=== PATIENT | female | born 1970 | race Two or more races ===

== ENCOUNTER 2019-12-12 01:07 | Inpatient (IN) | payer MEDICAID ==
[2019-12-12] VITALS (15 sets, daily range): BP systolic 105–128; BP diastolic 53–78
[~2019-12-12] VITALS: Ht 162.6 cm; Wt 100.0 kg
[2019-12-12] MEDS ORDERED: IV NS 1000 ML 1,000 ML IV ONE (01:30)
[2019-12-12 01:40] LABS: CREATININE 0.8 mg/dL (0.6-1.3); POTASSIUM 3.8 mmol/L (3.5-5.1)
--- NOTE | 2019-12-12 01:44 | NUR ---
Patient in bed, respirations even and unlabored on 4lpm via n/c well tolerated. No acute distress noted. Will continue to monitor.
[2019-12-12 01:45] LABS: BASOPHILS % (AUTO) 0.6 % (0.0-2.0); EOSINOPHILS % (AUTO) 0.1 % (0.0-7.0); HEMATOCRIT 39.5 % (31.2-41.9); HEMOGLOBIN 13.3 g/dL (10.9-14.3); LYMPHOCYTES # (AUTO) 1.4 K/uL (20.0-40.0); LYMPHOCYTES % (AUTO) 19.2 % (20.5-51.5); MAGNESIUM 1.6 mg/dL (1.8-2.4); MEAN CORPUSCULAR HEMOGLOBIN 28.5 uug (24.7-32.8); MEAN CORPUSCULAR HGB CONC 34 g/dL (32.3-35.6); MEAN CORPUSCULAR VOLUME 84.5 fL (75.5-95.3); MONOCYTES # (AUTO) 0.2 K/uL (2.0-10.0); MONOCYTES % (AUTO) 3.4 % (0.0-11.0); NEUTROPHILS # (AUTO) 5.4 K/uL (1.8-8.9); NEUTROPHILS % (AUTO) 76.7 % (38.5-71.5); PHOSPHOROUS 3.1 mg/dL (2.5-4.9); PLATELET COUNT (AUTO) 205 K/uL (179-408); RED BLOOD CELL COUNT(AUTO) 4.67 MIL/uL (3.63-4.92); WHITE BLOOD COUNT (AUTO) 7.1 K/uL (3.8-11.8)
[2019-12-12 01:53] LABS: BILIRUBIN,TOTAL 0.5 mg/dL (0.2-1.0); TOTAL PROTEIN, SERUM 7.1 g/dL (6.4-8.2)
[2019-12-12 01:57] LABS: THYROID STIMULATING HORMONE 4.442 mIU/mL (0.358-3.740)
[2019-12-12 02:00] LABS: ABG BASE EXCESS -0.5 mmol/L; ABG HCO3 21.9 mmol/L; ABG PH 7.482 (7.350-7.450); ABG PO2 81.7 mmHg (75.0-100.0); ABG SITE LEFT RADIAL; ABG TOTAL HEMOGLOBIN 13.3 G/dL (12.0-16.0); COHb 1.2 % (0.5-1.5); MetHb 0.3 % (0.0-1.5); O2Hb 95.9 % (94.0-97.0); VENT MODE Nasal Cannula
--- NOTE | 2019-12-12 02:11 | NUR ---
RT at bedside for ABG. Well tolerated by patient.
--- NOTE | 2019-12-12 02:42 | NUR ---
Report to Digna JARRETT
[2019-12-12] MEDS ORDERED: MAGNESIUM SULFATE/D5W 100 ML ONE (02:47)
--- NOTE | 2019-12-12 03:15 | NUR ---
Assumed care of patient from Digna JARRETT. Patient in bed, no acute distress. provided with blankets at this time.
[2019-12-12] MEDS: MAGNESIUM SULFATE/D5W 100 ML IV SCH ×4 (03:16→15:38)
[2019-12-12] MEDS ORDERED: ENOXAPARIN SODIUM 80 MG/0.8 ML DISP.SYRIN SQ ONE ×2 (03:45→03:46)
[2019-12-12] MEDS ORDERED: levoFLOXacin 750 MG/D5W 150 ML PIGGYBACK IV ONE (03:45)
[2019-12-12] MEDS ORDERED: CEFTRIAXONE 2 G in IV DEXTROSE 5% 100 ML IV ONE (03:45)
[2019-12-12] MEDS ORDERED: CEFTRIAXONE /D5W 50ML IVPB **ER PYXIS IV ONE (03:48)
--- NOTE | 2019-12-12 04:05 | NUR ---
Patient in bed, stable. Respirations even and unlabored , patient on 6L O2 via N/c per ER MD order. RR @ 21. SaO2 @ 95 % with good wave form.
--- NOTE | 2019-12-12 04:14 | NUR ---
[facility] called back, 2nd call placed to Aleida LINARES
[2019-12-12] MEDS ORDERED: ONDANSETRON 4 MG/2 ML VIAL IV PRN (05:00)
[2019-12-12] MEDS ORDERED: AZITHROMYCIN IV 500 MG in IV DEXTROSE 5% 250 ML IV SCH (05:00)
--- NOTE | 2019-12-12 05:02 | NUR ---
Patient in bed, isolation precautions ongoing. Respirations even and unlabored. SaO2 @ 95% on 6lpm via N/c. HR 70. RR20
[2019-12-12] MEDS ORDERED: levoFLOXacin 750MG/D5W 150 ML IV ONE (06:00)
--- NOTE | 2019-12-12 06:13 | NUR ---
Report given to Carito JARRETT on COVID Unit
--- NOTE | 2019-12-12 06:19 | NUR ---
Levaquin infusing. Will continue to infuse until complete dose. EMAR placed end time preemptively.
--- NOTE | 2019-12-12 07:04 | NUR ---
Report given to Sarah JARRETT
--- NOTE | 2019-12-12 07:10 | NUR ---
Received report from Bobo JARRETT
--- NOTE | 2019-12-12 07:30 | NUR ---
pt in bed, a a/ox4. on 6L O2 via NC. able to speak in complete sentences. able to make needs known No s/s of cardiovascular distress. Will continue to monitor
--- NOTE | 2019-12-12 08:30 | NUR ---
report given to KOLBY Nash
--- NOTE | 2019-12-12 08:50 | NUR ---
Pt. admitted to CCU 1 , under care of Isaiah Zambrano, CUSTOMER RETENTION REPRESENTATIVE Belongs List completed. All belongings with pt AA/Ox4. Able to speak in complete sentences Afibrile. Temp 98.8 oral On 6 L O2. O2 stat 96%
[2019-12-12] MEDS ORDERED: HYDROXYCHLOROQUINE SULFATE 200 MG TABLET PO SCH (09:00)
[2019-12-12] MEDS ORDERED: ACETAMINOPHEN 325 MG TABLET PO ONE (10:47)
[2019-12-12] MEDS: methylPREDNISolone SOD SUCC 125 MG/2 ML VIAL IV SCH ×2 (11:01→21:50)
[2019-12-12] MEDS: ENOXAPARIN SODIUM 40 MG/0.4 ML DISP.SYRIN SQ SCH (11:01)
[2019-12-12] MEDS: HYDROCODONE BIT/HOMATROPINE 5 ML UDC PO PRN ×2 (11:02→18:21)
[2019-12-12] MEDS ORDERED: TOCILIZUMAB 400 MG in IV NORMAL SALINE 80 ML IV ONE (11:15)
[2019-12-12] MEDS ORDERED: DEXTROSE 50% 50 ML DISP.SYRIN IV PRN (11:30)
[2019-12-12] MEDS: BLOOD SUGAR DIAGNOSTIC 1 EACH STRIP VI SCH ×3 (11:30→21:51)
[2019-12-12] MEDS: INSULIN REGULAR, HUMAN 300 UNIT/3 ML VIAL SQ PRN ×2 (13:28→17:34)
[2019-12-12] MEDS ORDERED: INVESTIGATIONAL IV MED 1 EA in IV NORMAL SALINE 210 ML IV ONE (15:30)
[2019-12-12] MEDS: INSULIN REGULAR, HUMAN 300 UNITS/3 ML VIAL SQ PRN (21:53)
[2019-12-12] MEDS: IV NORMAL SALINE 250 ML IV PRN (21:59)
--- NOTE | 2019-12-12 22:15 | NUR ---
Dtr: Tatiana called here / update.
[2019-12-13] VITALS (23 sets, daily range): BP systolic 96–121; BP diastolic 48–90
--- NOTE | 2019-12-13 00:45 | NUR ---
Inserted Corbett by female RN; patient incontinent.
[2019-12-13 04:53] LABS: BASOPHILS % (AUTO) 0.1 % (0.0-2.0); HEMATOCRIT 37.9 % (31.2-41.9); HEMOGLOBIN 12.8 g/dL (10.9-14.3); LYMPHOCYTES # (AUTO) 0.7 K/uL (20.0-40.0); LYMPHOCYTES % (AUTO) 11.9 % (20.5-51.5); MEAN CORPUSCULAR HEMOGLOBIN 28.7 uug (24.7-32.8); MEAN CORPUSCULAR HGB CONC 34 g/dL (32.3-35.6); MEAN CORPUSCULAR VOLUME 84.9 fL (75.5-95.3); MONOCYTES # (AUTO) 0.2 K/uL (2.0-10.0); MONOCYTES % (AUTO) 3.2 % (0.0-11.0); NEUTROPHILS # (AUTO) 5.3 K/uL (1.8-8.9); NEUTROPHILS % (AUTO) 84.8 % (38.5-71.5); PLATELET COUNT (AUTO) 256 K/uL (179-408); RED BLOOD CELL COUNT(AUTO) 4.46 MIL/uL (3.63-4.92); WHITE BLOOD COUNT (AUTO) 6.2 K/uL (3.8-11.8)
[2019-12-13 05:02] LABS: PHOSPHOROUS 2.9 mg/dL (2.5-4.9)
[2019-12-13 05:54] LABS: BILIRUBIN,DIRECT 0.1 mg/dL (0.0-0.2); BILIRUBIN,TOTAL 0.4 mg/dL (0.2-1.0); CREATININE 0.9 mg/dL (0.6-1.3); POTASSIUM 4.5 mmol/L (3.5-5.1); TOTAL PROTEIN, SERUM 6.7 g/dL (6.4-8.2)
[2019-12-13] MEDS ORDERED: CEFTRIAXONE 1 G in IV DEXTROSE 5% 50 ML IV SCH (06:00)
[2019-12-13] MEDS: BLOOD SUGAR DIAGNOSTIC 1 EACH STRIP VI SCH ×4 (07:30→22:01)
[2019-12-13] MEDS: methylPREDNISolone SOD SUCC 125 MG/2 ML VIAL IV SCH ×2 (08:27→21:13)
[2019-12-13] MEDS: HYDROCODONE BIT/HOMATROPINE 5 ML UDC PO PRN ×2 (08:27→22:04)
[2019-12-13] MEDS: ENOXAPARIN SODIUM 40 MG/0.4 ML DISP.SYRIN SQ SCH (08:30)
[2019-12-13] MEDS: ACETAMINOPHEN 325 MG TABLET PO PRN (08:51)
[2019-12-13] MEDS ORDERED: HYDROXYCHLOROQUINE SULFATE 200 MG TABLET PO SCH (09:00)
--- NOTE | 2019-12-13 11:25 | NUR ---
DOCTOR REGALADO IN THE UNIT TO SEE PATIENT. ABG DONE AT THIS TIME
[2019-12-13 11:48] LABS: ABG BASE EXCESS 2.1 mmol/L; ABG HCO3 26.5 mmol/L; ABG PCO2 40.3 mmHg (35.0-45.0); ABG PH 7.435 (7.350-7.450); ABG PO2 92.6 mmHg (75.0-100.0); ABG SITE RIGHT RADIAL; ABG TOTAL HEMOGLOBIN 13.3 G/dL (12.0-16.0); COHb 0.7 % (0.5-1.5); MetHb 0.2 % (0.0-1.5); O2Hb 96.8 % (94.0-97.0)
[2019-12-13] MEDS: INSULIN REGULAR, HUMAN 300 UNIT/3 ML VIAL SQ PRN ×2 (12:44→17:40)
[2019-12-13] MEDS: INVESTIGATIONAL IV MED 1 EA in IV NORMAL SALINE 230 ML IV SCH (15:33)
--- NOTE | 2019-12-13 19:45 | NUR ---
ASSISTED OOB TO THE BEDSIDE COMMODE , PER PATIENT SHE WANT TO DO NO.2, NO BM ONLY GAS ASSISTED BACK TO BED.SOB UPON EXERTION . HOB UP TOLERATING NR MASK AT 100% AT 15 LITERS .RR 24 TO 26 . CONTINUE TO MONITOR V/S AND RR .HAD DINNER AND ATE 100% .
--- NOTE | 2019-12-13 20:00 | NUR ---
TEMP 98.0 AXILLARY AFEBRILE,SR ON THE HEART MONITOR ,SATURATION 93 %. SOB UPON EXERTION .
[2019-12-14] VITALS (24 sets, daily range): BP systolic 92–122; BP diastolic 48–79
[2019-12-14] MEDS: ACETAMINOPHEN 325 MG TABLET PO PRN (00:24)
--- NOTE | 2019-12-14 00:40 | NUR ---
TYLENOL GIVEN C/O PAIN WHEN COUGHING ,PATIENT COUGHING NON PRODUCTIVE .PRN COUGH MEDICATION GIVEN .
[2019-12-14] MEDS: HYDROCODONE BIT/HOMATROPINE 5 ML UDC PO PRN ×4 (01:57→20:39)
[2019-12-14 05:27] LABS: BASOPHILS % (AUTO) 0.3 % (0.0-2.0); HEMOGLOBIN 12.7 g/dL (10.9-14.3); LYMPHOCYTES # (AUTO) 0.8 K/uL (20.0-40.0); LYMPHOCYTES % (AUTO) 7.4 % (20.5-51.5); MEAN CORPUSCULAR HEMOGLOBIN 28.5 uug (24.7-32.8); MEAN CORPUSCULAR HGB CONC 33 g/dL (32.3-35.6); MEAN CORPUSCULAR VOLUME 85.2 fL (75.5-95.3); MONOCYTES # (AUTO) 0.3 K/uL (2.0-10.0); MONOCYTES % (AUTO) 2.6 % (0.0-11.0); NEUTROPHILS # (AUTO) 9.8 K/uL (1.8-8.9); NEUTROPHILS % (AUTO) 89.7 % (38.5-71.5); PLATELET COUNT (AUTO) 295 K/uL (179-408); RED BLOOD CELL COUNT(AUTO) 4.46 MIL/uL (3.63-4.92)
[2019-12-14 05:41] LABS: BILIRUBIN,DIRECT 0.2 mg/dL (0.0-0.2); BILIRUBIN,TOTAL 0.2 mg/dL (0.2-1.0); CREATININE 0.8 mg/dL (0.6-1.3); POTASSIUM 4.6 mmol/L (3.5-5.1); TOTAL PROTEIN, SERUM 6.1 g/dL (6.4-8.2)
--- NOTE | 2019-12-14 05:48 | NUR ---
RESPIRATORY THERAPIST CAME AND DID ABG AND EKG AT B/S.
[2019-12-14 06:15] LABS: ABG BASE EXCESS 0.8 mmol/L; ABG HCO3 24.9 mmol/L; ABG PH 7.434 (7.350-7.450); ABG PO2 100.3 mmHg (75.0-100.0); ABG SITE LEFT RADIAL; ABG TOTAL HEMOGLOBIN 13.8 G/dL (12.0-16.0); COHb 0.6 % (0.5-1.5); MetHb 0.1 % (0.0-1.5); O2Hb 97.3 % (94.0-97.0)
[2019-12-14] MEDS: methylPREDNISolone SOD SUCC 125 MG/2 ML VIAL IV SCH ×2 (08:02→20:43)
[2019-12-14] MEDS: ENOXAPARIN SODIUM 40 MG/0.4 ML DISP.SYRIN SQ SCH (08:06)
--- NOTE | 2019-12-14 08:30 | NUR ---
Attending Delfino DRYWALL BOARDHANGER in the unit, full report given to DRYWALL BOARDHANGER. See order history for new orders.
[2019-12-14] MEDS: BLOOD SUGAR DIAGNOSTIC 1 EACH STRIP VI SCH ×4 (08:51→20:46)
[2019-12-14] MEDS: INSULIN REGULAR, HUMAN 300 UNIT/3 ML VIAL SQ PRN ×2 (08:52→12:26)
--- NOTE | 2019-12-14 11:01 | NUR ---
Pulmonary services Dr. Mata in the unit, full report given to Dr. Mata. see order history for new orders.
[2019-12-14] MEDS: INVESTIGATIONAL IV MED 1 EA in IV NORMAL SALINE 230 ML IV SCH (14:18)
[2019-12-14] MEDS: INSULIN REGULAR, HUMAN 300 UNITS/3 ML VIAL SQ PRN (21:00)
[2019-12-15] VITALS (24 sets, daily range): BP systolic 103–144; BP diastolic 54–90
[2019-12-15] MEDS: HYDROCODONE BIT/HOMATROPINE 5 ML UDC PO PRN ×4 (06:13→23:43)
[2019-12-15 06:28] LABS: BILIRUBIN,DIRECT 0.1 mg/dL (0.0-0.2); BILIRUBIN,TOTAL 0.3 mg/dL (0.2-1.0); CREATININE 0.8 mg/dL (0.6-1.3); POTASSIUM 4.6 mmol/L (3.5-5.1); TOTAL PROTEIN, SERUM 6.2 g/dL (6.4-8.2)
[2019-12-15 06:29] LABS: MAGNESIUM 2.1 mg/dL (1.8-2.4)
[2019-12-15 06:46] LABS: BASOPHILS % (AUTO) 0.1 % (0.0-2.0); EOSINOPHILS % (AUTO) 0.1 % (0.0-7.0); HEMATOCRIT 41.2 % (31.2-41.9); HEMOGLOBIN 13.6 g/dL (10.9-14.3); LYMPHOCYTES % (AUTO) 11.1 % (20.5-51.5); MEAN CORPUSCULAR HEMOGLOBIN 28.2 uug (24.7-32.8); MEAN CORPUSCULAR HGB CONC 33 g/dL (32.3-35.6); MEAN CORPUSCULAR VOLUME 85.8 fL (75.5-95.3); MONOCYTES # (AUTO) 0.4 K/uL (2.0-10.0); MONOCYTES % (AUTO) 4.7 % (0.0-11.0); NEUTROPHILS # (AUTO) 7.3 K/uL (1.8-8.9); PLATELET COUNT (AUTO) 317 K/uL (179-408); WHITE BLOOD COUNT (AUTO) 8.7 K/uL (3.8-11.8)
[2019-12-15] MEDS: BLOOD SUGAR DIAGNOSTIC 1 EACH STRIP VI SCH ×4 (06:57→20:31)
[2019-12-15 07:48] LABS: ABG BASE EXCESS 1.4 mmol/L; ABG HCO3 25.4 mmol/L; ABG PCO2 38.1 mmHg (35.0-45.0); ABG PH 7.442 (7.350-7.450); ABG PO2 80.8 mmHg (75.0-100.0); ABG SITE RIGHT RADIAL; COHb 1.1 % (0.5-1.5); MetHb 0.4 % (0.0-1.5); O2Hb 94.7 % (94.0-97.0)
[2019-12-15] MEDS: ENOXAPARIN SODIUM 40 MG/0.4 ML DISP.SYRIN SQ SCH (08:03)
[2019-12-15] MEDS: methylPREDNISolone SOD SUCC 125 MG/2 ML VIAL IV SCH ×2 (08:03→20:30)
--- NOTE | 2019-12-15 09:20 | NUR ---
Attending Delfino WRAPPER STITCHER in the unit, full report given. See order history for new orders. Delfino WRAPPER STITCHER at [facility] discussing plan of care with patient.
--- NOTE | 2019-12-15 09:37 | NUR ---
Patient severely restless and agitated, swinging his legs outside the side-rails. Patient unable to follow commands. For safety measures 1st-step mattress removed. and lopez applied patient been able to remove [id number]. Addendum: 12/15/19 at 0942 by CAREY GALVEZ RN the above note is intended for another patient.
--- NOTE | 2019-12-15 09:40 | NUR ---
Pulmonary services, Dr. Barrientos in the unit to see and examine patient, full report given see order hx.
[2019-12-15] MEDS ORDERED: ALBUTEROL SULFATE 8 GM HFA.AER.AD IH PRN (09:45)
--- NOTE | 2019-12-15 09:47 | NUR ---
Pulmonary services Dr. Barrientos in the unit, full report given to Dr. Barrientos. See order history for new orders. Dr. Barrientos at the bedside discussing plan of care with patient.
[2019-12-15] MEDS: FAMOTIDINE 20 MG TABLET PO SCH ×2 (10:08→20:30)
--- NOTE | 2019-12-15 11:30 | NUR ---
Cardiology services Dr. Montoya in the unit, full report given to Dr. Montoya. See order history for new orders.
[2019-12-15] MEDS: INVESTIGATIONAL IV MED 1 EA in IV NORMAL SALINE 230 ML IV SCH (14:59)
--- NOTE | 2019-12-15 18:00 | NUR ---
ID services Ashly PATTERN CUTTER in the unit, full report give to Ashly LEIGH. See order history for new orders.
--- NOTE | 2019-12-15 19:30 | NUR ---
Report received. Patient + for COVID -19, on isolation and 100% non rebreather mask plus 5L NC O2. AAO, coughing non productively. PRN medication for cough given. Taking po fluids well, but desaturates easily when O2 mask is taken off. Plan of care discussed with patient; verbalized understanding. Addendum: 12/16/19 at 0011 by RHONA ROSEN RN Amended: Links added.
--- NOTE | 2019-12-15 23:40 | NUR ---
Mildly restless, c/o non productive cough. Repositioned in bed; made comfortable. Cough medication and Tylenol tabs for generalized discomfort given. Addendum: 12/16/19 at 0031 by RHONA ROSEN RN Amended: Links added.
[2019-12-15] MEDS: ACETAMINOPHEN 325 MG TABLET PO PRN (23:45)
[2019-12-16] VITALS (25 sets, daily range): BP systolic 91–137; BP diastolic 51–93
[2019-12-16 05:22] LABS: BASOPHILS # (AUTO) 0.1 K/uL (0.0-8.0); BASOPHILS % (AUTO) 0.7 % (0.0-2.0); EOSINOPHILS % (AUTO) 0.5 % (0.0-7.0); HEMATOCRIT 42.2 % (31.2-41.9); LYMPHOCYTES # (AUTO) 1.2 K/uL (20.0-40.0); LYMPHOCYTES % (AUTO) 15.8 % (20.5-51.5); MEAN CORPUSCULAR HEMOGLOBIN 28.2 uug (24.7-32.8); MEAN CORPUSCULAR HGB CONC 33 g/dL (32.3-35.6); MEAN CORPUSCULAR VOLUME 85.1 fL (75.5-95.3); MONOCYTES # (AUTO) 0.4 K/uL (2.0-10.0); MONOCYTES % (AUTO) 5.5 % (0.0-11.0); NEUTROPHILS # (AUTO) 5.7 K/uL (1.8-8.9); NEUTROPHILS % (AUTO) 77.5 % (38.5-71.5); PLATELET COUNT (AUTO) 348 K/uL (179-408); RED BLOOD CELL COUNT(AUTO) 4.96 MIL/uL (3.63-4.92); WHITE BLOOD COUNT (AUTO) 7.4 K/uL (3.8-11.8)
[2019-12-16 05:44] LABS: CREATININE 0.7 mg/dL (0.6-1.3); MAGNESIUM 2.4 mg/dL (1.8-2.4); PHOSPHOROUS 4.1 mg/dL (2.5-4.9); POTASSIUM 4.6 mmol/L (3.5-5.1)
[2019-12-16 06:08] LABS: ABG BASE EXCESS 1.9 mmol/L; ABG HCO3 25.9 mmol/L; ABG PCO2 38.4 mmHg (35.0-45.0); ABG PH 7.446 (7.350-7.450); ABG SITE RIGHT RADIAL; ABG TOTAL HEMOGLOBIN 15.6 G/dL (12.0-16.0); COHb 0.6 % (0.5-1.5); MetHb 0.4 % (0.0-1.5); O2Hb 96.4 % (94.0-97.0)
--- NOTE | 2019-12-16 06:42 | NUR ---
Still SOB on exertion and desaturates easily when O2 mask is taken off. O2 100% non rebreather mask. library monitor: SB rate in the 40's-50's. BP stable. Addendum: 12/16/19 at 0642 by RHONA ROSEN RN Amended: Links added.
[2019-12-16] MEDS: BLOOD SUGAR DIAGNOSTIC 1 EACH STRIP VI SCH ×4 (07:15→20:24)
--- NOTE | 2019-12-16 07:30 | NUR ---
RECIEVED PT LYING IN BED WITH HOB ON HIGH FOWLERS POSITION. AWAKE, ALERT AND ORIENTEDX3. VERY PLEASANT AND IN GOOD SPIRIT. DENIES OF ANY PAIN. HR IS SR. IV SITE LEFT HAND IS OUT. IV SITE ON THE RIGHT AC IS PATENT AND INTACT. AFEBRILE. O2 ON 100% NRM, SATURATING IN THE 95-99%. LUNGS DIMINISHED, NO APPARENT RESPIRATORY DISTRESS NOTED.
[2019-12-16] MEDS: methylPREDNISolone SOD SUCC 125 MG/2 ML VIAL IV SCH ×2 (09:20→20:11)
[2019-12-16] MEDS: FAMOTIDINE 20 MG TABLET PO SCH ×2 (09:21→20:11)
[2019-12-16] MEDS: ENOXAPARIN SODIUM 40 MG/0.4 ML DISP.SYRIN SQ SCH (09:23)
--- NOTE | 2019-12-16 10:00 | NUR ---
SEEN AND EXAMINED BY DR SALAZAR WITH NEW ORDER.
[2019-12-16 11:09] LABS: BILIRUBIN,DIRECT 0.1 mg/dL (0.0-0.2); BILIRUBIN,TOTAL 0.3 mg/dL (0.2-1.0); TOTAL PROTEIN, SERUM 6.2 g/dL (6.4-8.2)
[2019-12-16] MEDS: HYDROCODONE BIT/HOMATROPINE 5 ML UDC PO PRN ×2 (12:42→19:34)
[2019-12-16] MEDS: INVESTIGATIONAL IV MED 1 EA in IV NORMAL SALINE 230 ML IV SCH (15:10)
--- NOTE | 2019-12-16 15:10 | NUR ---
INVESTIGATIONAL IV MEDICATION STARTED. VSS PRE MEDICATION , BP -92/67, HR- 52, SATURATION IS 99% ON 100% NRM.
--- NOTE | 2019-12-16 15:30 | NUR ---
MONITOR SBP 15 MINUTES AFTER THE INFUSION BEGAN, BP- 114/71, HR-56, O2SAT IS 98% ON 100% NRM. IV SITE IS PATANT AND INTACT ON THE RIGHT AC.
--- NOTE | 2019-12-16 16:00 | NUR ---
PT IN BED MUMBLING AND SAYING SHE IS FEELING SO NAUSEOUS, NO DIAPHORESIS, NO SHIVERING. BP STAYS 114/80. DECREASED THE INVESTIGATIONAL IV MEDICATION DOWN TO 50ML/HR. PT IS RESPONSIVE. NOTIFIED PHARMACIST.
--- NOTE | 2019-12-16 19:30 | NUR ---
Received patient on COVID-19 EILEEN koch. On 15 L non rebreather mask, sat above 92%. Claims still SOB with activity. Coughing non productively; cough medication given per patient's request. Addendum: 12/17/19 at 0032 by RHONA ROSEN RN Amended: Links added. Addendum: 12/17/19 at 0035 by RHONA ROSEN RN Amended: Links added. Addendum: 12/17/19 at 0035 by RHONA ROSEN RN Amended: Links added. Addendum: 12/17/19 at 0035 by RHONA ROSEN RN Amended: Links added. Addendum: 12/17/19 at 0035 by RHONA ROSEN RN Amended: Links added. Addendum: 12/17/19 at 0035 by RHONA ROSEN RN Amended: Links added. Addendum: 12/17/19 at 0036 by RHONA ROSEN RN Amended: Links added. Addendum: 12/17/19 at 0036 by RHONA ROSEN RN Amended: Links added. Addendum: 12/17/19 at 0036 by RHONA ROSEN RN Amended: Links added. Addendum: 12/17/19 at 0036 by RHONA ROSEN RN Amended: Links added. Addendum: 12/17/19 at 0036 by RHONA ROSEN RN Amended: Links added. Addendum: 12/17/19 at 0036 by RHONA ROSEN RN Amended: Links added. Addendum: 12/17/19 at 0037 by RHONA ROSEN RN Amended: Links added.
[2019-12-16] MEDS: ACETAMINOPHEN 325 MG TABLET PO PRN (20:24)
--- NOTE | 2019-12-16 20:24 | NUR ---
Mildly anxious, turning and moving a lot in bed and causes her to be SOB. Advised and reassured appropriately. Tylenol po given. Monitored closely. Addendum: 12/17/19 at 0035 by RHONA ROSEN RN Amended: Links added. Addendum: 12/17/19 at 0035 by RHONA ROSEN RN Amended: Links added. Addendum: 12/17/19 at 0035 by RHONA ROSEN RN Amended: Links added. Addendum: 12/17/19 at 0035 by RHONA ROSEN RN Amended: Links added. Addendum: 12/17/19 at 0035 by RHONA ROSEN RN Amended: Links added. Addendum: 12/17/19 at 0036 by RHONA ROSEN RN Amended: Links added. Addendum: 12/17/19 at 0036 by RHONA ROSEN RN Amended: Links added. Addendum: 12/17/19 at 0036 by RHONA ROSEN RN Amended: Links added. Addendum: 12/17/19 at 0036 by RHONA ROSEN RN Amended: Links added. Addendum: 12/17/19 at 0036 by RHONA ROSEN RN Amended: Links added. Addendum: 12/17/19 at 0036 by RHONA ROSEN RN Amended: Links added. Addendum: 12/17/19 at 0037 by RHONA ROSEN RN Amended: Links added.
[2019-12-17] VITALS (23 sets, daily range): BP systolic 96–134; BP diastolic 51–82
--- NOTE | 2019-12-17 | NUR ---
Sleeping; sat above 92%. BP stable.
[2019-12-17] MEDS: HYDROCODONE BIT/HOMATROPINE 5 ML UDC PO PRN ×3 (06:13→20:09)
[2019-12-17 06:29] LABS: CREATININE 0.8 mg/dL (0.6-1.3); MAGNESIUM 2.3 mg/dL (1.8-2.4); PHOSPHOROUS 4.5 mg/dL (2.5-4.9); POTASSIUM 4.6 mmol/L (3.5-5.1)
[2019-12-17 06:31] LABS: BASOPHILS % (AUTO) 0.1 % (0.0-2.0); EOSINOPHILS # (AUTO) 0.1 K/uL (0.0-0.7); EOSINOPHILS % (AUTO) 0.6 % (0.0-7.0); HEMATOCRIT 43.3 % (31.2-41.9); LYMPHOCYTES % (AUTO) 11.4 % (20.5-51.5); MEAN CORPUSCULAR HEMOGLOBIN 29.1 uug (24.7-32.8); MEAN CORPUSCULAR HGB CONC 35 g/dL (32.3-35.6); MEAN CORPUSCULAR VOLUME 84.2 fL (75.5-95.3); MONOCYTES # (AUTO) 0.3 K/uL (2.0-10.0); MONOCYTES % (AUTO) 3.4 % (0.0-11.0); NEUTROPHILS # (AUTO) 7.7 K/uL (1.8-8.9); NEUTROPHILS % (AUTO) 84.5 % (38.5-71.5); PLATELET COUNT (AUTO) 374 K/uL (179-408); RED BLOOD CELL COUNT(AUTO) 5.15 MIL/uL (3.63-4.92); WHITE BLOOD COUNT (AUTO) 9.1 K/uL (3.8-11.8)
--- NOTE | 2019-12-17 06:53 | NUR ---
Slept well during the night. Am care provided. Patient claims she feels a lot better today. Able to brush teeth, remove mask for about 2 minutes. Still desaturates, but patient is calm. Tolerated care fairly well.
[2019-12-17] MEDS: BLOOD SUGAR DIAGNOSTIC 1 EACH STRIP VI SCH (07:30)
[2019-12-17] MEDS: methylPREDNISolone SOD SUCC 125 MG/2 ML VIAL IV SCH ×2 (08:43→20:07)
[2019-12-17] MEDS: FAMOTIDINE 20 MG TABLET PO SCH ×2 (08:43→20:07)
--- NOTE | 2019-12-17 09:00 | NUR ---
PATIENT IS EATING HER BREAKFAST, SATURATION IS GOING DOWN IN THE 80'S BUT NOT RESPIRATORY DISTRESS NOTED.
--- NOTE | 2019-12-17 09:30 | NUR ---
SEEN AND EXAMINED BY DR SALAZAR WITH NEW ORDERS.
[2019-12-17] MEDS: ENOXAPARIN SODIUM 40 MG/0.4 ML DISP.SYRIN SQ SCH (09:41)
--- NOTE | 2019-12-17 10:22 | NUR ---
PT IS UP ON THE COMMODE, TOLERATING GOOD WITH THE 100% NRM
--- NOTE | 2019-12-17 11:30 | NUR ---
VENOUS DOPPLER STUDY DONE AT THE BEDSIDE AND ITS NEGATIVE.
--- NOTE | 2019-12-17 13:30 | NUR ---
SEEN AND EXAMINED BY DR TORRES WITH NEW ORDERS.
[2019-12-17] MEDS: ACETAMINOPHEN 325 MG TABLET PO PRN (16:17)
--- NOTE | 2019-12-17 16:30 | NUR ---
C/O OF HEADACHE AND REQUESTED FOR A COUGH SYRUP FOR HER DRY COUGH. MEDICATED WITH TYLENOL 650MG PO AND THER COUGH SYRUP.
--- NOTE | 2019-12-17 20:10 | NUR ---
GIVEN COUGH MEDICATION PATIENT ON AND OFF DRY COUGH . TOLERATING NON REBREATHER MASK AT 15 LITERS SATURATION 96 % AND RR 20 TO 25. HOB UP . F/C TO BSD . SR TO SB 50 ON THE HEART MONITOR .
--- NOTE | 2019-12-17 21:00 | NUR ---
due medication given and scan medication . tolerated with water . given bottle water at b/s .
--- NOTE | 2019-12-17 22:30 | NUR ---
patient sleeping in bed ,tolerating non rebreather mask saturation 96 to 98 % rr 20 to 25. with occasional non productive cough .
[2019-12-18] VITALS (24 sets, daily range): BP systolic 93–134; BP diastolic 43–80
--- NOTE | 2019-12-18 | NUR ---
cough medication given and Tylenol given c/o generalized body pain .
--- NOTE | 2019-12-18 05:30 | NUR ---
assisted patient able to do oral care brushed teeth and wash self with wipes .
[2019-12-18 05:41] LABS: CREATININE 0.8 mg/dL (0.6-1.3); MAGNESIUM 2.3 mg/dL (1.8-2.4); PHOSPHOROUS 4.5 mg/dL (2.5-4.9); POTASSIUM 5.2 mmol/L (3.5-5.1)
[2019-12-18 05:45] LABS: BASOPHILS % (AUTO) 0.1 % (0.0-2.0); HEMATOCRIT 43.2 % (31.2-41.9); HEMOGLOBIN 14.4 g/dL (10.9-14.3); LYMPHOCYTES # (AUTO) 1.1 K/uL (20.0-40.0); LYMPHOCYTES % (AUTO) 10.4 % (20.5-51.5); MEAN CORPUSCULAR HEMOGLOBIN 28.3 uug (24.7-32.8); MEAN CORPUSCULAR HGB CONC 33 g/dL (32.3-35.6); MEAN CORPUSCULAR VOLUME 84.9 fL (75.5-95.3); MONOCYTES # (AUTO) 0.2 K/uL (2.0-10.0); MONOCYTES % (AUTO) 1.5 % (0.0-11.0); NEUTROPHILS # (AUTO) 9.1 K/uL (1.8-8.9); PLATELET COUNT (AUTO) 364 K/uL (179-408); RED BLOOD CELL COUNT(AUTO) 5.08 MIL/uL (3.63-4.92); WHITE BLOOD COUNT (AUTO) 10.3 K/uL (3.8-11.8)
[2019-12-18] MEDS: HYDROCODONE BIT/HOMATROPINE 5 ML UDC PO PRN ×5 (07:34→20:28)
[2019-12-18] MEDS: methylPREDNISolone SOD SUCC 125 MG/2 ML VIAL IV SCH ×2 (09:10→20:28)
[2019-12-18] MEDS: FAMOTIDINE 20 MG TABLET PO SCH ×2 (09:10→20:28)
[2019-12-18] MEDS: ENOXAPARIN SODIUM 40 MG/0.4 ML DISP.SYRIN SQ SCH (09:11)
--- NOTE | 2019-12-18 14:40 | NUR ---
Dr. Barrientos here to see pt. Full report given. New orders received.
--- NOTE | 2019-12-18 19:45 | NUR ---
ROUNDS MADE PATIENT WANTS TO DO NO.2 ASSISTED OOB TO THE BEDSIDE COMMODE . PATIENT ABLE TO STAND UP . NO BM ONLY GAS . CHANGED SOILED LINENS AND GOWN ,PATIENT ABLE TO WIPE SELF USING THE BABY WIPES , CHANGED SOILED LINENS AND GOWN ,F/C DONE .HAND HELD ASSIST BACK TO BED.
--- NOTE | 2019-12-18 20:15 | NUR ---
DUE MEDICATION GIVEN AND TOLERATED WITH WATER .
[2019-12-18] MEDS: ACETAMINOPHEN 325 MG TABLET PO PRN ×3 (20:29→20:30)
--- NOTE | 2019-12-18 20:30 | NUR ---
GIVEN TYLENOL PRN PO FOR GENERALIZED PAIN .
--- NOTE | 2019-12-18 21:18 | NUR ---
SOB NOTED ONLY UPON EXERTION OTHER WILLIAM SHES TOLERATING NON REBREATHER MASK 100% AT 15 LITERS SATURATION 98% RR 25. WITH OCCASIONAL NON PRODUCTIVE COUGH .
--- NOTE | 2019-12-18 23:30 | NUR ---
asked for water given bottle water at bedside .
[2019-12-19] VITALS (24 sets, daily range): BP systolic 97–121; BP diastolic 47–71
--- NOTE | 2019-12-19 | NUR ---
sleeping in bed ,no respiratory distress tolerating non rebreather mask .
[2019-12-19] MEDS: HYDROCODONE BIT/HOMATROPINE 5 ML UDC PO PRN ×4 (01:04→22:38)
--- NOTE | 2019-12-19 05:00 | NUR ---
am labs drawn by side boss .
[2019-12-19 05:58] LABS: BASOPHILS % (AUTO) 0.1 % (0.0-2.0); HEMATOCRIT 41.8 % (31.2-41.9); HEMOGLOBIN 13.8 g/dL (10.9-14.3); LYMPHOCYTES # (AUTO) 0.9 K/uL (20.0-40.0); LYMPHOCYTES % (AUTO) 7.2 % (20.5-51.5); MEAN CORPUSCULAR HEMOGLOBIN 28.2 uug (24.7-32.8); MEAN CORPUSCULAR HGB CONC 33 g/dL (32.3-35.6); MEAN CORPUSCULAR VOLUME 85.4 fL (75.5-95.3); MONOCYTES # (AUTO) 0.4 K/uL (2.0-10.0); MONOCYTES % (AUTO) 3.5 % (0.0-11.0); NEUTROPHILS # (AUTO) 11.1 K/uL (1.8-8.9); NEUTROPHILS % (AUTO) 89.2 % (38.5-71.5); PLATELET COUNT (AUTO) 414 K/uL (179-408); WHITE BLOOD COUNT (AUTO) 12.4 K/uL (3.8-11.8)
[2019-12-19 06:32] LABS: CREATININE 0.8 mg/dL (0.6-1.3); POTASSIUM 4.8 mmol/L (3.5-5.1)
[2019-12-19] MEDS: FAMOTIDINE 20 MG TABLET PO SCH ×2 (08:32→20:01)
[2019-12-19] MEDS: methylPREDNISolone SOD SUCC 125 MG/2 ML VIAL IV SCH ×2 (08:32→20:02)
--- NOTE | 2019-12-19 08:56 | NUR ---
Dr. Barrientos here to see pt. Full report given. New orders received.
[2019-12-19] MEDS: ENOXAPARIN SODIUM 40 MG/0.4 ML DISP.SYRIN SQ SCH (09:00)
[2019-12-19] MEDS: ACETAMINOPHEN 325 MG TABLET PO PRN (12:11)
--- NOTE | 2019-12-19 19:30 | NUR ---
Report received. Patient admitted 12/12/19 DX: COVID-19. AAO. Isolation maintained. PM care rendered per patient's request. Patient able to wipe self, and stand up at side of bed for linens change. Still very mildly SOB. On 100% non rebreather mask. Addendum: 12/19/19 at 2248 by RHONA ROSEN RN Amended: Links added. Addendum: 12/19/19 at 2249 by RHONA ROSEN RN Amended: Links added.
--- NOTE | 2019-12-19 22:35 | NUR ---
Coughing non productively; medication for cough given. Monitor: SB rate 50's. BP stable. Addendum: 12/19/19 at 2249 by RHONA ROSEN RN Amended: Links added.
[2019-12-20] VITALS (23 sets, daily range): BP systolic 82–146; BP diastolic 40–70
[2019-12-20 05:46] LABS: BASOPHILS % (AUTO) 0.2 % (0.0-2.0); EOSINOPHILS % (AUTO) 0.1 % (0.0-7.0); HEMATOCRIT 41.9 % (31.2-41.9); HEMOGLOBIN 13.9 g/dL (10.9-14.3); LYMPHOCYTES % (AUTO) 8.1 % (20.5-51.5); MEAN CORPUSCULAR HEMOGLOBIN 28.4 uug (24.7-32.8); MEAN CORPUSCULAR HGB CONC 33 g/dL (32.3-35.6); MEAN CORPUSCULAR VOLUME 85.6 fL (75.5-95.3); MONOCYTES # (AUTO) 0.6 K/uL (2.0-10.0); MONOCYTES % (AUTO) 4.9 % (0.0-11.0); NEUTROPHILS # (AUTO) 10.6 K/uL (1.8-8.9); NEUTROPHILS % (AUTO) 86.7 % (38.5-71.5); PLATELET COUNT (AUTO) 389 K/uL (179-408); RED BLOOD CELL COUNT(AUTO) 4.89 MIL/uL (3.63-4.92); WHITE BLOOD COUNT (AUTO) 12.2 K/uL (3.8-11.8)
[2019-12-20 05:57] LABS: BILIRUBIN,TOTAL 0.4 mg/dL (0.2-1.0); CREATININE 0.8 mg/dL (0.6-1.3); MAGNESIUM 2.4 mg/dL (1.8-2.4); PHOSPHOROUS 4.4 mg/dL (2.5-4.9); POTASSIUM 4.7 mmol/L (3.5-5.1)
--- NOTE | 2019-12-20 07:00 | NUR ---
Stable all night. Able to perform some ADLs with desaturations when brushing teeth and O2 is off. But sat improved easily when O2 is replaced.
--- NOTE | 2019-12-20 07:15 | NUR ---
Received report from assembler 1st shift nurse, patient in bed awake, no distress noted at this time, patient is sinus ronaldo on the monitor, oxygen is on non rebreather mask 15L 100%, bed in low position, side rails upx2. Corbett draining.
[2019-12-20] MEDS: HYDROCODONE BIT/HOMATROPINE 5 ML UDC PO PRN ×3 (08:02→21:21)
[2019-12-20] MEDS: FAMOTIDINE 20 MG TABLET PO SCH ×2 (08:02→21:21)
[2019-12-20] MEDS: methylPREDNISolone SOD SUCC 125 MG/2 ML VIAL IV SCH ×3 (08:03→21:30)
[2019-12-20] MEDS: ENOXAPARIN SODIUM 40 MG/0.4 ML DISP.SYRIN SQ SCH (08:05)
--- NOTE | 2019-12-20 16:00 | NUR ---
Patient found trying to take something from perineal area, when entered the room patient stated that the sheriff fell out and it was seen on the floor. Patient requested to keep it out and that she try to use the commode.
--- NOTE | 2019-12-20 18:55 | NUR ---
Patient stable throughout shift, sheriff leaking and was pulled out by patient, wants to try using commode to urinate, if untolerated will let nurse know. Patient has non productive cough, desaturates with excessive talking or taking off mask for brief periods. Unable to titrate oxygen down. patient in no distress, bed in low position, side rails up x2.
--- NOTE | 2019-12-20 19:30 | NUR ---
received patient awake , sitting on a commode , no distress , on 100 nrb oxygen , iv tavo 20 ga intact
--- NOTE | 2019-12-20 21:45 | NUR ---
iv rac dislodge , pressure dressing applied , iv 22 ga tavo inserted with one 1 attempt
--- NOTE | 2019-12-20 22:00 | NUR ---
sitting in the commode , denies no pain , no dsitress
[2019-12-21] VITALS (14 sets, daily range): BP systolic 96–128; BP diastolic 24–76
--- NOTE | 2019-12-21 02:05 | NUR ---
patient has an inhaler standy by , on 100 % non rebreather , tolerating well , has a cough medication offerd and accepted Addendum: 12/21/19 at 0205 by JEVON LIN RN Amended: Juan added. Addendum: 12/21/19 at 0206 by JEVON LIN RN Amended: Juan guaman. Addendum: 12/21/19 at 0207 by JEVON LIN RN Amended: Links added.
--- NOTE | 2019-12-21 02:06 | NUR ---
keep closer to the station frequent rounding , call light with in reach Addendum: 12/21/19 at 0206 mary LIN RN Amended: Links added. Addendum: 12/21/19 at 0207 mary LIN RN Amended: Links added.
--- NOTE | 2019-12-21 02:07 | NUR ---
loc being monitored and currently able to follow command Addendum: 12/21/19 at 0207 by JEVON LIN RN Amended: Links added.
--- NOTE | 2019-12-21 02:08 | NUR ---
lab values being monitored and correcetd if necessary Addendum: 12/21/19 at 0208 by JEVON LIN RN Amended: Links added.
--- NOTE | 2019-12-21 04:00 | NUR ---
sleeping comfortabaly , no distress
[2019-12-21 05:48] LABS: BASOPHILS % (AUTO) 0.1 % (0.0-2.0); EOSINOPHILS % (AUTO) 0.1 % (0.0-7.0); HEMATOCRIT 42.3 % (31.2-41.9); LYMPHOCYTES # (AUTO) 0.8 K/uL (20.0-40.0); LYMPHOCYTES % (AUTO) 6.5 % (20.5-51.5); MEAN CORPUSCULAR HEMOGLOBIN 28.5 uug (24.7-32.8); MEAN CORPUSCULAR HGB CONC 33 g/dL (32.3-35.6); MEAN CORPUSCULAR VOLUME 86.1 fL (75.5-95.3); MONOCYTES # (AUTO) 0.3 K/uL (2.0-10.0); MONOCYTES % (AUTO) 2.4 % (0.0-11.0); NEUTROPHILS # (AUTO) 11.5 K/uL (1.8-8.9); NEUTROPHILS % (AUTO) 90.9 % (38.5-71.5); PLATELET COUNT (AUTO) 361 K/uL (179-408); RED BLOOD CELL COUNT(AUTO) 4.91 MIL/uL (3.63-4.92); WHITE BLOOD COUNT (AUTO) 12.6 K/uL (3.8-11.8)
[2019-12-21 06:19] LABS: CREATININE 0.7 mg/dL (0.6-1.3); MAGNESIUM 2.5 mg/dL (1.8-2.4); PHOSPHOROUS 4.5 mg/dL (2.5-4.9); POTASSIUM 4.9 mmol/L (3.5-5.1)
[2019-12-21] MEDS: HYDROCODONE BIT/HOMATROPINE 5 ML UDC PO PRN ×2 (08:56→15:30)
[2019-12-21] MEDS: FAMOTIDINE 20 MG TABLET PO SCH ×2 (08:56→20:43)
[2019-12-21] MEDS: methylPREDNISolone SOD SUCC 125 MG/2 ML VIAL IV SCH ×2 (08:57→20:43)
[2019-12-21] MEDS: ENOXAPARIN SODIUM 40 MG/0.4 ML DISP.SYRIN SQ SCH (08:58)
--- NOTE | 2019-12-21 11:24 | NUR ---
Report called to [place], KOLBY. patient stable, no distress noted at this time. Patient to be transferred via wheelchair.
--- NOTE | 2019-12-21 12:30 | NUR ---
Received pt from CCU. Pt ambulatory with good balance. Pt alert and oriented x 4. Pt is in no acute distress. Call light is within reach.
--- NOTE | 2019-12-21 15:30 | NUR ---
Pt complaint of coughing. Hydromet given for cough.
--- NOTE | 2019-12-21 17:00 | NUR ---
Hydromet effective. no further cough noted.
--- NOTE | 2019-12-21 17:44 | NUR ---
Pt denies any c/o pain.
[2019-12-22] VITALS: BP 113/64
[2019-12-22] MEDS: HYDROCODONE BIT/HOMATROPINE 5 ML UDC PO PRN ×2 (00:43→09:00)
[2019-12-22 04:26] VITALS: BP 110/54
[2019-12-22] MEDS: methylPREDNISolone SOD SUCC 125 MG/2 ML VIAL IV SCH ×2 (08:17→21:16)
[2019-12-22] MEDS: FAMOTIDINE 20 MG TABLET PO SCH ×2 (08:17→21:16)
[2019-12-22] MEDS: ENOXAPARIN SODIUM 40 MG/0.4 ML DISP.SYRIN SQ SCH (08:21)
[2019-12-22] MEDS: ACETAMINOPHEN 325 MG TABLET PO PRN ×2 (09:00→17:00)
[2019-12-22 11:30] VITALS: BP 111/66
[2019-12-22 11:49] VITALS: BP 155/68
[2019-12-22 16:00] VITALS: BP 111/56
--- NOTE | 2019-12-22 17:05 | NUR ---
Pt noted to have 102.5 temp. Tylenol prn and cooling measures provided. Cultures ordered per protocol. Addendum: 12/22/19 at 1708 by CECILIA VASQUEZ RN *disregard note incorrect patient
[2019-12-22 20:00] VITALS: BP 104/61
[2019-12-22] MEDS: GUAIFENESIN/CODEINE 5 ML LIQUID UDC PO PRN (21:17)
[2019-12-23] VITALS: BP 100/70
[2019-12-23] MEDS: HYDROCODONE BIT/HOMATROPINE 5 ML UDC PO PRN (00:20)
--- NOTE | 2019-12-23 06:40 | NUR ---
PT SLEPT COMFORTABLY. PT IN NO ACUTE DISTRESS. IV INTACT. PRESCRIBED MEDICATION GIVEN AND PT TOLERATED IT WELL.PT GIVEN ROBISTUSSIN AND HYDROMET PRN. SAFETY AND COMFORT PROVIDED. WILL ENDORSE TO INCOMING NURSE FOR CONTINUITY OF CARE.
[2019-12-23 06:41] LABS: BASOPHILS % (AUTO) 0.2 % (0.0-2.0); HEMOGLOBIN 13.6 g/dL (10.9-14.3); LYMPHOCYTES # (AUTO) 0.8 K/uL (20.0-40.0); LYMPHOCYTES % (AUTO) 6.1 % (20.5-51.5); MEAN CORPUSCULAR HEMOGLOBIN 27.9 uug (24.7-32.8); MEAN CORPUSCULAR HGB CONC 32 g/dL (32.3-35.6); MONOCYTES # (AUTO) 0.4 K/uL (2.0-10.0); MONOCYTES % (AUTO) 2.8 % (0.0-11.0); NEUTROPHILS # (AUTO) 12.6 K/uL (1.8-8.9); NEUTROPHILS % (AUTO) 90.9 % (38.5-71.5); PLATELET COUNT (AUTO) 337 K/uL (179-408); RED BLOOD CELL COUNT(AUTO) 4.88 MIL/uL (3.63-4.92); WHITE BLOOD COUNT (AUTO) 13.9 K/uL (3.8-11.8)
[2019-12-23 07:33] LABS: BILIRUBIN,TOTAL 0.5 mg/dL (0.2-1.0); CREATININE 0.8 mg/dL (0.6-1.3); MAGNESIUM 2.6 mg/dL (1.8-2.4); PHOSPHOROUS 4.7 mg/dL (2.5-4.9); POTASSIUM 4.5 mmol/L (3.5-5.1); TOTAL PROTEIN, SERUM 6.1 g/dL (6.4-8.2)
--- NOTE | 2019-12-23 08:00 | NUR ---
RECEIVED IN BED AWAKE ALERT AND ORIENTED DENIES PAIN OR DISCOMFORTS AT THIS TIME AFEBRILE NO SOB AT THIS TIME CALL LIGHTS AND PERSONAL BELONGINGS ARE WITHIN EASY REACH WILL CONTINUE TO OBSERVE
[2019-12-23] MEDS: methylPREDNISolone SOD SUCC 125 MG/2 ML VIAL IV SCH ×2 (08:38→20:58)
[2019-12-23] MEDS: FAMOTIDINE 20 MG TABLET PO SCH ×2 (08:38→20:57)
[2019-12-23] MEDS: ENOXAPARIN SODIUM 40 MG/0.4 ML DISP.SYRIN SQ SCH (08:41)
--- NOTE | 2019-12-23 11:30 | NUR ---
DR SALAZAR AND DR BRIAN MCINTYRE HERE TO SEE PATIENT WITH NEW ORDERS AND NOTED TELEMETRY MONITORING ORDERED MADE COMFORTABLE WILL CONTINUE TO OBSERVE.
--- NOTE | 2019-12-23 14:00 | NUR ---
ASSISTED INTO THE BATHROOM VOIDED AND SPECIMEN OBTAINED AND SENT TO THE LAB REMAIN ON NRM AT 15L WITH SATS AT 95-96 PERCENT NO SOB AT THIS TIME RESTING .
[2019-12-23 15:55] LABS: *BILIRUBIN,URIN NEGATIVE (NEGATIVE); *BLOOD, URINE NEGATIVE (NEGATIVE); *CLARITY,URINE CLEAR (CLEAR); *COLOR,URINE YELLOW (YELLOW); *KETONES,URINE NEGATIVE (NEGATIVE); LEUKOCYTE ESTERASE ,URINE TRACE (NEGATIVE); NITRITE, URINE NEGATIVE (NEGATIVE); UGLUCOSE NEGATIVE (NEGATIVE)
[2019-12-23 16:06] LABS: BACTERIA,URINE NONE SEEN /HPF (NONE SEEN); RBC,URINE 0-3 /HPF (0-3); SQUAMOUS EPITHELIAL CELL,UR FEW /HPF (NONE SEEN); WBC,URINE 0-3 /HPF (0-3)
--- NOTE | 2019-12-23 16:45 | NUR ---
NEW ORDER TO SEND SPECIMEN FOR COVID LARRY VIRUS RECEIVED FROM DR BRIAN MCINTYRE COLLECTED AND SENT TO THE LAB ORDERED.
--- NOTE | 2019-12-23 18:14 | NUR ---
AWAKE ALERT COOPERATIVE REMAIN ON NRM O2 ORDERED WITH NO SOB AT THIS TIME APPETITE HAS BEEN GOOD AND FLUIDS INTAKE HAS BEEN ADEQUATE WILL CONTINUE TO OBSERVE PATIENT REMAINS AFEBRILE AT THIS TIME.
[2019-12-23 18:37] VITALS: BP 113/70
--- NOTE | 2019-12-23 19:45 | NUR ---
Received patient awake and alert. Patient shows no signs or symptoms of distress at this time. Vital signs stable. NSR on tele monitor. Denies having any shortness of breath and is afebrile at this time. Bed set to lowest position. Call light within reach. Will continue to monitor patient.
[2019-12-23 20:00] VITALS: BP 101/41
[2019-12-23] MEDS: GUAIFENESIN/CODEINE 5 ML LIQUID UDC PO PRN (21:25)
[2019-12-24] VITALS: BP 90/46
[2019-12-24 04:00] VITALS: BP 97/45
[2019-12-24 06:33] LABS: BASOPHILS % (AUTO) 0.1 % (0.0-2.0); EOSINOPHILS % (AUTO) 0.2 % (0.0-7.0); HEMATOCRIT 39.9 % (31.2-41.9); HEMOGLOBIN 13.3 g/dL (10.9-14.3); LYMPHOCYTES # (AUTO) 1.6 K/uL (20.0-40.0); LYMPHOCYTES % (AUTO) 11.5 % (20.5-51.5); MEAN CORPUSCULAR HEMOGLOBIN 28.6 uug (24.7-32.8); MEAN CORPUSCULAR HGB CONC 33 g/dL (32.3-35.6); MEAN CORPUSCULAR VOLUME 85.9 fL (75.5-95.3); MONOCYTES # (AUTO) 0.9 K/uL (2.0-10.0); MONOCYTES % (AUTO) 6.5 % (0.0-11.0); NEUTROPHILS # (AUTO) 11.6 K/uL (1.8-8.9); NEUTROPHILS % (AUTO) 81.7 % (38.5-71.5); PLATELET COUNT (AUTO) 308 K/uL (179-408); RED BLOOD CELL COUNT(AUTO) 4.64 MIL/uL (3.63-4.92); WHITE BLOOD COUNT (AUTO) 14.3 K/uL (3.8-11.8)
--- NOTE | 2019-12-24 06:35 | NUR ---
Patient shows no signs or symptoms of distress at this time. Vital signs stable. Sinus ronaldo on tele monitor. Assisted to bathroom with O2 tank but felt short of breath after doing ADLs such as brushing teeth and washing face. Assisted patient back to bed and is resting comfortably. O2 saturation 95% on 15L non-rebreather. Will endorse patient to day shift nurse in stable condition.
[2019-12-24 06:55] LABS: CREATININE 0.7 mg/dL (0.6-1.3); MAGNESIUM 2.6 mg/dL (1.8-2.4); PHOSPHOROUS 4.1 mg/dL (2.5-4.9); POTASSIUM 4.4 mmol/L (3.5-5.1)
[2019-12-24] MEDS: FAMOTIDINE 20 MG TABLET PO SCH ×2 (08:12→20:05)
[2019-12-24] MEDS: ENOXAPARIN SODIUM 40 MG/0.4 ML DISP.SYRIN SQ SCH (08:14)
[2019-12-24] MEDS: methylPREDNISolone SOD SUCC 125 MG/2 ML VIAL IV SCH (08:15)
[2019-12-24 15:21] VITALS: BP 96/54
[2019-12-24 15:29] LABS: FERRITIN 214 ng/mL (8-252); LACTATE DEHYDROGENASE 497 U/L (81-234)
[2019-12-24 17:22] VITALS: BP 90/50
--- NOTE | 2019-12-24 19:30 | NUR ---
RECEIVED PT AWAKE, ALERT AND ORIENTEDX4. PT IN NO ACUTE RESPIRATORY DISTRESS. IV INTACT. SAFETY AND COMFORT PROVIDED. PT ASKING FOR COUGH MEDICATION. WILL CONTINUE TO MONITOR.
[2019-12-24 20:00] VITALS: BP 99/49
[2019-12-24] MEDS: GUAIFENESIN/CODEINE 5 ML LIQUID UDC PO PRN (20:05)
[2019-12-24] MEDS: ACETAMINOPHEN 325 MG TABLET PO PRN (20:05)
[2019-12-25] VITALS: BP 98/58
[2019-12-25 04:00] VITALS: BP 104/53
--- NOTE | 2019-12-25 06:18 | NUR ---
Robitussin prn medication given. Pt tolerated it well.
--- NOTE | 2019-12-25 06:19 | NUR ---
PT SLEPT INTERMITTENTLY. PT IN NO ACUTE DISTRESS. IV INTACT. PRESCrIBED MEDICATION GIVEN AND PT TOLERATED IT WELL. SAFETY AND COMFORT PROVIDED.ALL NEEDS ARE MET.WILL ENDORSE TO INCOMING NURSE FOR CONTINUITY OF CARE.
[2019-12-25 06:41] LABS: CREATININE 0.8 mg/dL (0.6-1.3); MAGNESIUM 2.4 mg/dL (1.8-2.4); PHOSPHOROUS 3.5 mg/dL (2.5-4.9); POTASSIUM 3.7 mmol/L (3.5-5.1)
[2019-12-25 06:45] LABS: BASOPHILS # (AUTO) 0.1 K/uL (0.0-8.0); BASOPHILS % (AUTO) 0.6 % (0.0-2.0); EOSINOPHILS # (AUTO) 0.4 K/uL (0.0-0.7); EOSINOPHILS % (AUTO) 2.4 % (0.0-7.0); HEMATOCRIT 40.7 % (31.2-41.9); HEMOGLOBIN 13.3 g/dL (10.9-14.3); LYMPHOCYTES # (AUTO) 3.6 K/uL (20.0-40.0); LYMPHOCYTES % (AUTO) 21.7 % (20.5-51.5); MEAN CORPUSCULAR HEMOGLOBIN 28.3 uug (24.7-32.8); MEAN CORPUSCULAR HGB CONC 33 g/dL (32.3-35.6); MEAN CORPUSCULAR VOLUME 86.6 fL (75.5-95.3); MONOCYTES # (AUTO) 1.6 K/uL (2.0-10.0); MONOCYTES % (AUTO) 9.7 % (0.0-11.0); NEUTROPHILS # (AUTO) 10.7 K/uL (1.8-8.9); NEUTROPHILS % (AUTO) 65.6 % (38.5-71.5); PLATELET COUNT (AUTO) 345 K/uL (179-408); WHITE BLOOD COUNT (AUTO) 16.4 K/uL (3.8-11.8)
--- NOTE | 2019-12-25 07:50 | NUR ---
Received patient in bed, awake an verbally responsive. On Oxygen at 15L via non rebreather mask. saturating 97%. Complaining of Headache, will give tylenol 650mg PRN for Pain. Kept clean and comfortable. Will continue to monitor.
[2019-12-25 08:00] VITALS: BP 91/38
--- NOTE | 2019-12-25 08:00 | NUR ---
placed patient on Oxygen at 8L via Non rebreather mask, saturating 92%. will continue to monitor.
[2019-12-25] MEDS: FAMOTIDINE 20 MG TABLET PO SCH ×2 (08:41→20:32)
[2019-12-25] MEDS: methylPREDNISolone SOD SUCC 40 MG/ML VIAL IV SCH (08:41)
[2019-12-25] MEDS: ACETAMINOPHEN 325 MG TABLET PO PRN (08:41)
[2019-12-25] MEDS ORDERED: methylPREDNISolone SOD SUCC 125 MG/2 ML VIAL IV SCH (09:00)
[2019-12-25] MEDS: ENOXAPARIN SODIUM 40 MG/0.4 ML DISP.SYRIN SQ SCH (09:37)
[2019-12-25 09:56] LABS: EOSINOPHILS % (MANUAL) 3 % (0-8); LYMPHOCYTES % (MANUAL) 21 % (20-40); MONOCYTES % (MANUAL) 6 % (2-10); NEUTROPHILS % (MANUAL) 70 % (42-75)
[2019-12-25 11:30] VITALS: BP 102/54
[2019-12-25 15:30] VITALS: BP 106/58
[2019-12-25] MEDS ORDERED: NITROFURANTOIN/NITROFURAN MAC 100 MG CAPSULE PO SCH (17:00)
--- NOTE | 2019-12-25 17:30 | NUR ---
Patient was placed on Oxygen at 6L via Nasal canula, saturating 92-94%.
--- NOTE | 2019-12-25 18:27 | NUR ---
Patient in bed, awake and verbally responsive. On Oxygen at 6L via nasal canula, saturating 93%. With episode of dry cough. No complain of SOB. Tylenol 650mg given for Headache. Afebrile. All needs attended and met. Kept clean and comfortable. Will endorse to Oncoming Nurse.
--- NOTE | 2019-12-25 20:00 | NUR ---
Patient received into care, awake and sitting up in bed, resting comfortably. Patient is alert/oriented x4 and has no complaints of pain or discomfort at this time. All safety, fall, and isolation precautions are in place. Call light and personal items are within reach at all times. Will continue to monitor and assess.
--- NOTE | 2019-12-25 21:15 | NUR ---
This nurse was outside patient's room and heard patient coughing several times. This nurse checked patient's oxygen saturation after coughing episode and found it to be 88% with 2L oxygen via nasal canula. This nurse applied simple face mask with 2L oxygen to improve oxygen saturation. Will continue to monitor and assess.
--- NOTE | 2019-12-25 21:40 | NUR ---
This nurse reassessed patient's oxygen saturation and it is now 96% with 2L oxygen via simple face mask. This nurse changed oxygen delivery method back to nasal canula at 2L/min. Will continue to monitor and assess.
[2019-12-25] MEDS: MEROPENEM 1 G in IV NORMAL SALINE 100 ML IV SCH (21:41)
[2019-12-25] MEDS: GUAIFENESIN/CODEINE 5 ML LIQUID UDC PO PRN (21:44)
[2019-12-25] MEDS ORDERED: MEROPENEM 1 G in IV NORMAL SALINE 100 ML IV SCH (22:00)
[2019-12-25 22:41] VITALS: BP 107/73
[2019-12-26] VITALS (7 sets, daily range): BP systolic 90–132; BP diastolic 45–65
[2019-12-26] MEDS: MEROPENEM 1 G in IV NORMAL SALINE 100 ML IV SCH ×3 (05:03→21:55)
--- NOTE | 2019-12-26 06:00 | NUR ---
Patient slept well throughout night with no further occurrences of desaturation verbalized by patient or noted/observed by this nurse. This nurse has titrated NC oxygen to 4L/min which patient is tolerating well at 96% oxygen saturation. This nurse provided education to patient to use call light to notify nursing team if oxygen saturation measures below 90% on bedside monitor. Patient acknowledged understanding of request. All prescribed medications provided as ordered and tolerated well by patient, with no adverse side effects verbalized by patient or noted/observed by this nurse. All safety, fall, and isolation precautions remain in effect. Call light and personal items remain within reach at all times.
[2019-12-26 06:41] LABS: BASOPHILS % (AUTO) 0.2 % (0.0-2.0); EOSINOPHILS % (AUTO) 0.1 % (0.0-7.0); HEMATOCRIT 40.8 % (31.2-41.9); HEMOGLOBIN 13.3 g/dL (10.9-14.3); LYMPHOCYTES # (AUTO) 1.4 K/uL (20.0-40.0); LYMPHOCYTES % (AUTO) 10.4 % (20.5-51.5); MEAN CORPUSCULAR HEMOGLOBIN 28.1 uug (24.7-32.8); MEAN CORPUSCULAR HGB CONC 33 g/dL (32.3-35.6); MONOCYTES # (AUTO) 0.7 K/uL (2.0-10.0); MONOCYTES % (AUTO) 5.4 % (0.0-11.0); NEUTROPHILS # (AUTO) 11.5 K/uL (1.8-8.9); NEUTROPHILS % (AUTO) 83.9 % (38.5-71.5); PLATELET COUNT (AUTO) 289 K/uL (179-408); RED BLOOD CELL COUNT(AUTO) 4.74 MIL/uL (3.63-4.92); WHITE BLOOD COUNT (AUTO) 13.6 K/uL (3.8-11.8)
[2019-12-26 06:43] LABS: CREATININE 0.6 mg/dL (0.6-1.3); MAGNESIUM 2.4 mg/dL (1.8-2.4); PHOSPHOROUS 4.4 mg/dL (2.5-4.9); POTASSIUM 4.2 mmol/L (3.5-5.1)
--- NOTE | 2019-12-26 07:45 | NUR ---
Patient in bed, awake and verbally responsive. On Oxygen at 4L via nasal canula saturating 94%. with episode of dry cough. No complain of pain or discomfort at this time. kept clean and comfortable. Will continue to monitor.
[2019-12-26] MEDS: FAMOTIDINE 20 MG TABLET PO SCH ×2 (08:06→21:54)
[2019-12-26] MEDS: methylPREDNISolone SOD SUCC 40 MG/ML VIAL IV SCH (08:06)
[2019-12-26] MEDS: ENOXAPARIN SODIUM 40 MG/0.4 ML DISP.SYRIN SQ SCH (10:01)
--- NOTE | 2019-12-26 18:19 | NUR ---
Patient in bed, awake alert and verbally responsive. On Oxygen at 4L via nasal canula, saturating 91-94%. With episode of dry cough noted. Afebrile. No complain of Pain or discomfort. Kept clean and comfortable. Will endorse to Oncoming Nurse.
--- NOTE | 2019-12-26 20:20 | NUR ---
Patient received into care, sitting up in bed, watching television. Patient is alert/oriented x4 and has no complaints of pain or discomfort at this time. IV site on left AC is patent and intact. All safety, fall, and isolation precautions are in place. Call light and personal items are within reach at all times. Will continue to monitor and assess.
[2019-12-26] MEDS: GUAIFENESIN/CODEINE 5 ML LIQUID UDC PO PRN (21:54)
[2019-12-27] VITALS: BP 101/60
[2019-12-27 04:31] VITALS: BP 92/52
--- NOTE | 2019-12-27 05:00 | NUR ---
Patient slept well throughout night with no complaints of pain or discomfort verbalized by patient. All prescribed medications provided as ordered and tolerated well, with no adverse side effects verbalized by patient or noted/observed by this nurse. All safety, fall, and isolation precautions remain in effect. Call light and personal items remain within reach.
[2019-12-27] MEDS: MEROPENEM 1 G in IV NORMAL SALINE 100 ML IV SCH ×3 (05:31→21:04)
[2019-12-27] MEDS: FAMOTIDINE 20 MG TABLET PO SCH ×2 (08:19→20:57)
[2019-12-27] MEDS: methylPREDNISolone SOD SUCC 40 MG/ML VIAL IV SCH (08:20)
[2019-12-27] MEDS: GUAIFENESIN/CODEINE 5 ML LIQUID UDC PO PRN ×2 (08:36→20:57)
[2019-12-27] MEDS: ENOXAPARIN SODIUM 40 MG/0.4 ML DISP.SYRIN SQ SCH (08:36)
[2019-12-27 09:00] VITALS: BP 99/48
[2019-12-27 09:34] LABS: BASOPHILS # (AUTO) 0.1 K/uL (0.0-8.0); BASOPHILS % (AUTO) 0.5 % (0.0-2.0); EOSINOPHILS # (AUTO) 0.1 K/uL (0.0-0.7); EOSINOPHILS % (AUTO) 1.1 % (0.0-7.0); HEMATOCRIT 40.8 % (31.2-41.9); HEMOGLOBIN 13.3 g/dL (10.9-14.3); LYMPHOCYTES % (AUTO) 17.9 % (20.5-51.5); MEAN CORPUSCULAR HEMOGLOBIN 28.4 uug (24.7-32.8); MEAN CORPUSCULAR HGB CONC 33 g/dL (32.3-35.6); MEAN CORPUSCULAR VOLUME 87.1 fL (75.5-95.3); MONOCYTES # (AUTO) 0.8 K/uL (2.0-10.0); MONOCYTES % (AUTO) 6.9 % (0.0-11.0); NEUTROPHILS # (AUTO) 8.3 K/uL (1.8-8.9); NEUTROPHILS % (AUTO) 73.6 % (38.5-71.5); PLATELET COUNT (AUTO) 248 K/uL (179-408); RED BLOOD CELL COUNT(AUTO) 4.68 MIL/uL (3.63-4.92); WHITE BLOOD COUNT (AUTO) 11.3 K/uL (3.8-11.8)
--- NOTE | 2019-12-27 09:56 | NUR ---
Patient noted sitting on the side of the bed, 91% on 3 liters nasal cannula, no complaints of pain, no signs of distress, cough noted, prn cough medicine given, call light in reach, bed locked and in lowest position, took all am medications, all needs met at this time
[2019-12-27 10:02] LABS: CREATININE 0.9 mg/dL (0.6-1.3); MAGNESIUM 2.3 mg/dL (1.8-2.4); PHOSPHOROUS 3.8 mg/dL (2.5-4.9); POTASSIUM 3.6 mmol/L (3.5-5.1)
[2019-12-27 17:00] VITALS: BP 128/61
--- NOTE | 2019-12-27 20:00 | NUR ---
Patient received into care sitting up in bed, watching television, resting comfortably. Patient is alert/oriented x4 and has no complaints of pain or discomfort at this time. All safety, fall, and isolation precautions are in place. Call light and personal items are within reach at all times. Will continue to monitor and assess.
[2019-12-27 20:04] VITALS: BP 96/43
[2019-12-28 00:09] VITALS: BP 115/68
[2019-12-28 04:00] VITALS: BP 92/57
[2019-12-28] MEDS: MEROPENEM 1 G in IV NORMAL SALINE 100 ML IV SCH ×3 (05:24→21:05)
--- NOTE | 2019-12-28 06:00 | NUR ---
Patient slept well throughout night with no complaints of pain or discomfort verbalized to this nurse. All prescribed medications provided as ordered and tolerated well, with no adverse side effects verbalized by patient or noted/observed by this nurse. All safety, fall, and isolation precautions remain in place. Call light and personal items remain within reach at all times.
[2019-12-28 08:49] LABS: BASOPHILS # (AUTO) 0.1 K/uL (0.0-8.0); BASOPHILS % (AUTO) 0.9 % (0.0-2.0); EOSINOPHILS # (AUTO) 0.2 K/uL (0.0-0.7); EOSINOPHILS % (AUTO) 1.7 % (0.0-7.0); HEMATOCRIT 39.3 % (31.2-41.9); HEMOGLOBIN 12.6 g/dL (10.9-14.3); LYMPHOCYTES # (AUTO) 2.4 K/uL (20.0-40.0); LYMPHOCYTES % (AUTO) 19.9 % (20.5-51.5); MEAN CORPUSCULAR HEMOGLOBIN 28.1 uug (24.7-32.8); MEAN CORPUSCULAR HGB CONC 32 g/dL (32.3-35.6); MEAN CORPUSCULAR VOLUME 87.4 fL (75.5-95.3); MONOCYTES # (AUTO) 1.1 K/uL (2.0-10.0); MONOCYTES % (AUTO) 9.4 % (0.0-11.0); NEUTROPHILS # (AUTO) 8.1 K/uL (1.8-8.9); NEUTROPHILS % (AUTO) 68.1 % (38.5-71.5); PLATELET COUNT (AUTO) 251 K/uL (179-408); RED BLOOD CELL COUNT(AUTO) 4.49 MIL/uL (3.63-4.92); WHITE BLOOD COUNT (AUTO) 11.9 K/uL (3.8-11.8)
[2019-12-28 09:03] LABS: CREATININE 0.7 mg/dL (0.6-1.3); MAGNESIUM 2.3 mg/dL (1.8-2.4); PHOSPHOROUS 4.5 mg/dL (2.5-4.9); POTASSIUM 3.9 mmol/L (3.5-5.1)
[2019-12-28] MEDS: FAMOTIDINE 20 MG TABLET PO SCH ×2 (09:03→20:55)
[2019-12-28] MEDS: methylPREDNISolone SOD SUCC 40 MG/ML VIAL IV SCH (09:03)
[2019-12-28 09:32] VITALS: BP 115/51
[2019-12-28] MEDS: ENOXAPARIN SODIUM 40 MG/0.4 ML DISP.SYRIN SQ SCH (09:38)
[2019-12-28] MEDS: GUAIFENESIN/CODEINE 5 ML LIQUID UDC PO PRN ×2 (10:20→21:05)
--- NOTE | 2019-12-28 16:02 | NUR ---
Pt received, assessed, AAOx4, no acute distress, slight cough present while discussing plan of care. Robitussin administered per PRN orders, proven effective. Compliant with routine medication administration. VSS. Pt able to make needs known. Call light placed within reach. All fall, isolation, and safety precautions implemented. Will continue to monitor.
[2019-12-28 17:25] VITALS: BP 118/63
[2019-12-28 20:16] VITALS: BP 107/69
[2019-12-28] MEDS: IV NORMAL SALINE 250 ML IV PRN (21:05)
[2019-12-29 00:48] VITALS: BP 93/52
[2019-12-29 05:19] VITALS: BP 99/54
[2019-12-29] MEDS: MEROPENEM 1 G in IV NORMAL SALINE 100 ML IV SCH ×2 (05:25→13:07)
--- NOTE | 2019-12-29 06:40 | NUR ---
Patient slept well. On O2 at 3lpm via NC saturating at 93-94%. No complaints of pain. IV on LAC intact and patent w/ IVF infusing. All needs attended. Will endorse accordingly
[2019-12-29 06:49] LABS: BASOPHILS # (AUTO) 0.1 K/uL (0.0-8.0); BASOPHILS % (AUTO) 0.8 % (0.0-2.0); EOSINOPHILS # (AUTO) 0.2 K/uL (0.0-0.7); EOSINOPHILS % (AUTO) 1.8 % (0.0-7.0); HEMATOCRIT 39.1 % (31.2-41.9); HEMOGLOBIN 12.8 g/dL (10.9-14.3); LYMPHOCYTES # (AUTO) 3.5 K/uL (20.0-40.0); LYMPHOCYTES % (AUTO) 26.7 % (20.5-51.5); MEAN CORPUSCULAR HEMOGLOBIN 28.5 uug (24.7-32.8); MEAN CORPUSCULAR HGB CONC 33 g/dL (32.3-35.6); MEAN CORPUSCULAR VOLUME 87.1 fL (75.5-95.3); MONOCYTES # (AUTO) 1.2 K/uL (2.0-10.0); MONOCYTES % (AUTO) 9.2 % (0.0-11.0); NEUTROPHILS # (AUTO) 8.1 K/uL (1.8-8.9); NEUTROPHILS % (AUTO) 61.5 % (38.5-71.5); PLATELET COUNT (AUTO) 266 K/uL (179-408); RED BLOOD CELL COUNT(AUTO) 4.49 MIL/uL (3.63-4.92); WHITE BLOOD COUNT (AUTO) 13.2 K/uL (3.8-11.8)
[2019-12-29 07:00] LABS: CREATININE 0.8 mg/dL (0.6-1.3); MAGNESIUM 2.4 mg/dL (1.8-2.4); POTASSIUM 3.8 mmol/L (3.5-5.1)
[2019-12-29] MEDS ORDERED: BLOOD SUGAR DIAGNOSTIC 1 EACH STRIP VI SCH (07:30)
[2019-12-29] MEDS: FAMOTIDINE 20 MG TABLET PO SCH (08:21)
[2019-12-29] MEDS: methylPREDNISolone SOD SUCC 40 MG/ML VIAL IV SCH (08:21)
[2019-12-29] MEDS: ENOXAPARIN SODIUM 40 MG/0.4 ML DISP.SYRIN SQ SCH (08:24)
--- NOTE | 2019-12-29 08:52 | NUR ---
RECEIVED PATIENT IN BED AWAKE ALERT AND ORIENTED DENIES PAIN OR DISCOMFORTS REMAIN ON O2 AT 3L/M BY NASAL CANULA PATIENT STATED GETS SHORTNESS OF BREATH WHEN SHE AMBULATES TO THE BATHROOM TELE SHE IS SR WITH NO ECTOPY AT THIS TIME.PATIENT SEEN AND EXAMINED BY DR SALAZAR WITH NEW ORDERS AND NOTED WILL CONTINUE TO OBSERVE.
[2019-12-29 11:33] VITALS: BP 109/73
--- NOTE | 2019-12-29 12:42 | NUR ---
DISCHARGE PLANNING PER THE TAX ASSOCIATE PATIENT WILL BE DISCHARGED HOME TODAY PATIENT IS CURRENTLY ON O2 AT 3L/M AND HER SATS HAS BEEN BETWEEN 93/94 PERCENT WILL CHECK HER SATURATION ON ROOM AIR AFTER SHE FINISHES LUNCH TO DETERMINE IF SHE WILL REQUIRE O2 AT HOME PATIENT AWARE AND IS AGREEABLE.
--- NOTE | 2019-12-29 13:30 | NUR ---
PATIENT PLACED ON ROOM AIR AT THIS TIME TO CHECK HER SATURATION WITHOUT OXYGEN. PATIENT INSTRUCTED THAT SHE WILL BE WITHOUT O2 FOR 15 MINUTES AND HER SAT WILL BE RECHECKED BUT IN THE MEANWHILE IF SHE EXPERIENCES SHORTNESS OF BREATH LET ME KNOW SO THAT I CAN RECHECK HER O2 SATURATION SOONER AND SHE EXPRESSED UNDERSTANDING.
--- NOTE | 2019-12-29 13:45 | NUR ---
HER O2 SAT AT THIS TIME IS 87-88 PERCENT O2 RESTARTED AT 1L/M AND THE SAT IS NOW 91-92 PERCENT SO O2 LEFT AT 1L/M NO SOB AT THIS TIME.
[2019-12-29 15:31] VITALS: BP 110/70
--- NOTE | 2019-12-29 15:43 | NUR ---
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
--- NOTE | 2019-12-29 17:15 | NUR ---
PATIENT DISCHARGED PICKED UP BY HER DAUGHTER IN SATISFACTORY CONDITION WITH INSTRUCTIONS TO GO TO HER PERSONAL PHARMACY TO STAFF REPORTER HER DISCHARGE MEDICATIONS PER DR BRIAN MCINTYRE.PATIENT TO MAINTAIN FREQUENT HAND WASHING SANITIZE OFTEN AND MAINTAIN SOCIAL DISTANCING AND TO CALL HER PRIMARY DOCTOR FOR A FOLLOW UP APPOINTMENT WITHIN THE NEXT ONE WEEK ANS SHE EXPRESSED UNDERSTAND PATIENTS DAUGHTER AWARE THAT PATIENT REQUIRES OXYGEN TO MAINTAIN SATS WAS ALREADY ARRANGED BY THE DISCHARGE ELECTRONIC NEWS GATHERING EDITOR.
[2019-12-29] MEDS ORDERED: PRED20TA PO (18:29)
[2019-12-29] MEDS ORDERED: FAMO20TA8 PO (18:29)
[2019-12-29] MEDS ORDERED: ALBU8HFA4 IH (18:29)
[2019-12-29] MEDS ORDERED: NITR100C11 PO (18:29)
== END 2019-12-29 17:15 | disposition home or self-care (01) | DRG 137 ==
LOC: ER 01:11 → TELE 07:57 → CCU 08:18 → TELE3 12-21 12:08 → TELE 12-21 21:26 → TELE3 12-28 18:32 → MEDSURG3 12-29 11:45
PROVIDERS: ADMIT Nurse Practitioner Acute Care; ATTEND Nurse Practitioner Acute Care
DX: U07.1 COVID-19 (principal); J96.01 Acute respiratory failure with hypoxia; E43 Unspecified severe protein-calorie malnutrition; D68.69 Other thrombophilia; J12.89 Other viral pneumonia; E83.42 Hypomagnesemia; E87.1 Hypo-osmolality and hyponatremia; E86.1 Hypovolemia; N39.0 Urinary tract infection, site not specified; B96.20 Unspecified Escherichia coli [E. coli] as the cause of diseases classified elsewhere; E11.9 Type 2 diabetes mellitus without complications; Z16.12 Extended spectrum beta lactamase (ESBL) resistance; E66.9 Obesity, unspecified; Z68.37 Body mass index [BMI] 37.0-37.9, adult; E88.09 Other disorders of plasma-protein metabolism, not elsewhere classified
CPT/HCPCS: 36415; 36600; 70030-TC; 71045; 83605; 83615; 83735; 84100; 84443; 85025; 85610; 85730; 86140; 87040; 87077; 87086; 87400; 93005; A4663; G0378; J0696; J1650; J1815; J1956; J2185; J2920; J2930; J3262; J3475; J3490; J3535; J7030; J7040; J7050; J7060; U0003-CS